=== PATIENT | female | born 1955 | race Caucasian/White ===

== ENCOUNTER → 2021-08-05 17:37 | Outpatient (CLI) | payer MEDICARE, SELFPAY ==
--- NOTE | 2021-08-05 17:42 | DI.MRI.S_ITS ---
PROCEDURE: MR ANKLE LT WO CON INDICATIONS: ACHILLES TENDINOSIS/PERONEAL TENDON PAIN TECHNIQUE: Noncontrast sagittal T1 spin echo and T2 fast spin echo with fat saturation, axial proton density fast spin echo and T2 fast spin echo with fat saturation, coronal T1 spin echo and T2 fast spin echo with fat saturation through the ankle/hindfoot. COMPARISON: None. FINDINGS: Image quality: Excellent. Bones and joints: No bone marrow contusions or fractures. Osteoarthritic changes are noted throughout midfoot and hindfoot joints with joint space narrowing and subchondral sclerosis. No hindfoot coalitions. No osteochondral injuries of the talar dome. Small amount of tibiotalar and subtalar joint effusion is seen. No gross loose bodies. Medial structures: The posterior tibialis, flexor digitorum longus, and flexor hallucis longus tendons are intact. The posterior tibial neurovascular bundle appears normal within the tarsal tunnel, without extrinsic mass effect. The deep layer (anterior and posterior tibiotalar ligaments) and superficial layer (tibionavicular, tibiospring, and tibiocalcaneal ligaments) of the deltoid ligament appear normal. The spring ligament components (superomedial calcaneonavicular, medioplantar oblique calcaneonavicular, and inferoplantar longitudinal ligaments) are intact. Lateral structures: The anterior talofibular, calcaneofibular, and posterior talofibular ligaments appear intact. More superiorly, the anterior and posterior tibiofibular ligaments appear intact, as is the intermalleolar ligament. The tibiofibular syndesmosis is normal in width at 2 mm or less. The peroneus longus and brevis tendons demonstrate normal location and morphology. Adjacent bony peroneal tubercle and retrotrochlear prominence are normal in size. The sinus tarsi demonstrates normal fatty signal, without edema, fibrosis, or cyst formation. Visualized sinus tarsi components (cervical ligament, interosseous talocalcaneal ligament, roots of the inferior extensor retinaculum) appear normal. The calcaneonavicular and calcaneocuboid components of the bifurcate ligament appear intact. The dorsal calcaneocuboid ligament appears intact. Anterior structures: The tibialis anterior, extensor hallucis longus, and extensor digitorum longus tendons appear intact. The dorsal talonavicular ligament appears intact. Posterior and plantar structures: There is thickening involving distal 3.5 cm segment of Achilles tendon approximately 2.2 cm from its insertion on posterior calcaneus and measures up to 1 cm in AP diameter. Intrasubstance T2 hyperintense signal is also seen. No full-thickness Achilles tendon rupture. Medial and lateral bands of the plantar fascia are of normal thickness. No abductor digiti quinti muscle atrophy to suggest Reinoso neuropathy. IMPRESSION: 1. Tendinosis and low to moderate grade intrasubstance partial-thickness tear involving distal 3.5 cm segment of Achilles tendon approximately 2.2 cm from its insertion on posterior calcaneus. No full-thickness Achilles tendon rupture. Plantar fascia is intact. 2. Mild midfoot and hindfoot joint osteoarthritis. No fracture or dislocation. No osteochondral injury of talar dome. Small joint effusion, no gross loose bodies. 3. Rest of the ankle tendons and ligaments are grossly intact. Dictated by: Devon Frias M.D. on 08/06/2021 at 8:26 Approved by: Devon Frias M.D. on 08/06/2021 at 8:38
== END ==
PROVIDERS: Referring Provider Orthopaedic Surgery Foot and Ankle Surgery; Visit Provider Orthopaedic Surgery Foot and Ankle Surgery
DX: S86.012A Strain of left Achilles tendon, initial encounter (principal); M19.072 Primary osteoarthritis, left ankle and foot; M25.475 Effusion, left foot
CPT/HCPCS: 73721